=== PATIENT | male | born 1980 | race Caucasian/White ===

== ENCOUNTER → 2023-04-22 | Outpatient (CLI) | payer BC, OTHER | LOC: M SLEEP HO 12:52 | PROVIDERS: ATTEND Family Medicine | DX: R06.83 Snoring (principal) ==

== ENCOUNTER → 2023-04-23 | Outpatient (REF) | payer OTHER ==
[2023-04-23 12:55] LABS: BASO % 0.4 % (0.0-1.0); EOS # 0.1 10^3/uL (0.0-0.5); EOS % 2.3 % (0.0-3.0); HEMATOCRIT 48.9 % (42.0-52.0); HEMOGLOBIN 16.5 g/dl (13.5-17.5); LYMPH % 40.7 % (24.0-44.0); MEAN CORPUSCULAR HEMOGLOBIN 30.3 pg (27.0-33.0); MEAN CORPUSCULAR HGB CONC 33.7 g/dl (32.0-36.5); MEAN CORPUSCULAR VOLUME 89.7 fl (80.0-96.0); MONO # 0.5 10^3/uL (0.0-0.8); MONO % 9.9 % (2.0-8.0); NEUTROPHILS # 2.3 10^3/uL (1.5-8.5); NEUTROPHILS % 46.5 % (36.0-66.0); PLATELET COUNT, AUTOMATED 150 10^3/uL (150-450); RED BLOOD COUNT 5.45 10^6/uL (4.30-6.10); WHITE BLOOD COUNT 4.9 10^3/uL (4.0-10.0)
[2023-04-23 13:27] LABS: ALBUMIN 4.6 G/DL (3.2-5.2); ALKALINE PHOSPHATASE 47 U/L (46-116); ALT/SGPT 37 U/L (7.0-40); AST/SGOT 20 U/L (<34); BLOOD UREA NITROGEN 17 MG/DL (9-23); CALCIUM LEVEL 8.9 MG/DL (8.5-10.1); CARBON DIOXIDE LEVEL 26 MMOL/L (20-31); CHLORIDE LEVEL 106 MMOL/L (98-107); CHOLESTEROL LEVEL 158 MG/DL (<200); CHOLESTEROL RISK RATIO 3.51 (<5); CREATININE FOR GFR 1.05 MG/DL (0.70-1.30); GLOMERULAR FILTRATION RATE > 60.0 (>60); GLUCOSE, FASTING 77 MG/DL (60-100); HDL CHOLESTEROL 44.9 MG/DL (>40); LDL CHOLESTEROL 99.3 MG/DL (<100); NON-HDL-C 113.1 MG/DL; SODIUM LEVEL 141 MMOL/L (136-145); TOTAL PROTEIN 7.3 G/DL (5.7-8.2); TRIGLYCERIDES LEVEL 69 MG/DL (<150)
[2023-04-23 13:29] LABS: HEMOGLOBIN A1c 5.1 % (4.0-6.0)
[2023-04-23 13:30] LABS: FREE T4 1.13 NG/DL (0.89-1.76); THYROID STIMULATING HORMONE 1.446 uIU/ML (0.55-4.78)
== END ==
LOC: M LABWUC 12:19
PROVIDERS: ATTEND Physician Assistant
DX: Z13.29 Encounter for screening for other suspected endocrine disorder (principal); Z13.220 Encounter for screening for lipoid disorders; Z12.5 Encounter for screening for malignant neoplasm of prostate